=== PATIENT | male | born 1960 | race Caucasian/White ===

== ENCOUNTER 2023-03-21 11:23 | Inpatient (IN) | payer OTHER ==
[~2023-03-21] VITALS: Ht 172.7 cm; Wt 84.3 kg
[~2023-03-21 11:23] MED LIST: CYCL-837 PO; DexAMETHasone SOD PHOS 10MG/1ML VIAL INJ ONE; GLYCOPYRROLATE 0.2 MG/ML 1ML VIAL ONE; LIDOCAINE 2% JELLY 11ml (GLYDO) ONE; LOSA50TA46 PO; MEPERIDINE HCL (50 MG/ML) 1 ML VIAL ONE; MIDAZOLAM HCL 2MG/2ML 2ml VIAL (1mg/ml) ONE; NAP500T PO; NEOSTIGMINE 1 MG/ML INJ (10mg/10ML VIAL) ONE; OMEP20TA PO; ONDANSETRON HCL 4 MG/2 ML VIAL ONE; PROPOFOL 10 MG/ML 20 ML IV ONE; ROCURONIUM 10MG/ML 10ML VIAL IV ONE; SODIUM CHLORIDE LOCK 40 ML ONE; SUCCINYLCHOLINE CHLORIDE 20 MG/ML 10ML VIAL IV ONE; TAMS0.4C36 PO; TRAM50TA2 PO; TRANEXAMIC ACID 20 ML ONE; ceFAZolin 1GM/50ML 100 ML IV ONE; fentaNYL CITRATE 100 MCG/2 ML VL ONE
[2023-03-21] MEDS: ceFAZolin 1GM/50ML 50 ML IV SCH ×2 (11:30→21:33)
[2023-03-21] MEDS ORDERED: ACETAMINOPHEN 325 MG TAB PO PRN (11:30)
[2023-03-21] MEDS ORDERED: NITROGLYCERIN 0.4 MG SL TAB SL PRN (11:30)
[2023-03-21] MEDS ORDERED: ONDANSETRON HCL 4 MG/2 ML VIAL IV PRN (11:30)
[2023-03-21] MEDS ORDERED: DexAMETHasone SOD PHOS 10MG/1ML VIAL INJ IV ONE (11:30)
[2023-03-21] MEDS ORDERED: MORPHINE SULFATE INJ 2 MG/ml SYRG IV PRN (11:30)
[2023-03-21 11:35] VITALS: PULSE 83; RESP 13; O2SAT 95
[2023-03-21] MEDS ORDERED: METOCLOPRAMIDE HCL 5MG/ml INJ 2ml VIAL IV PRN (11:45)
[2023-03-21] MEDS ORDERED: HYDROmorphone HCL 2 MG/ML VL/or syr IV PRN (11:45)
[2023-03-21] MEDS: HYDROmorphone HCL 2 MG/ML VL/or syr IV PRN ×4 (11:53→12:40)
[2023-03-21] MEDS: CYCLOBENZAPRINE HCL 10 MG TAB PO SCH ×3 (12:21→21:05)
[2023-03-21] MEDS: MORPHINE SULFATE INJ 2 MG/ml SYRG IV PRN ×3 (12:28→21:26)
[2023-03-21] MEDS: D5W/SOD CHLO 0.9% 1,000 ML IV SCH ×2 (12:35→21:34)
[2023-03-21] MEDS ORDERED: hydrALAZINE HCL 20 MG/ML VL IV ONE (13:15)
[2023-03-21] MEDS: HYDROcodone-ACET 10/325MG TAB PO PRN ×2 (14:15→23:08)
[2023-03-21] MEDS ORDERED: LABETALOL HCL 5 MG/ML 4ML SYRINGE IV ONE (14:15)
[2023-03-21 15:42] VITALS: PULSE 84; RESP 20; TEMP 36.9; O2SAT 95
[2023-03-21 16:00] VITALS: BP 184/96; PULSE 84; RESP 20; TEMP 97.4; O2SAT 95
[2023-03-21] MEDS ORDERED: LOSARTAN POTASSIUM 50 MG TAB PO ONE (17:00)
[2023-03-21 18:44] LABS: Chloride 105 mmol/L (98-107); Potassium 4.1 mmol/L (3.5-5.1); Sodium 138 mmol/L (136-145)
[2023-03-21 18:45] LABS: Anion Gap 6 (5-15); Calcium 8.7 mg/dL (8.5-10.1); Carbon Dioxide 27 mmol/L (20-30)
[2023-03-21 18:50] LABS: BUN/Creatinine Ratio 13.9 (10.0-20.0); Blood Urea Nitrogen 15 mg/dL (9-23); Glucose 153 mg/dL (74-106)
[2023-03-21 20:00] VITALS: PULSE 85; PULSE 96; RESP 18; O2SAT 95
[2023-03-21] MEDS: hydrALAZINE HCL 20 MG/ML VL IV PRN (21:02)
[2023-03-21] MEDS: LOSARTAN POTASSIUM 50 MG TAB PO SCH (21:04)
[2023-03-21] MEDS: DOCUSATE SOD 100 MG CAP PO SCH (21:34)
[2023-03-21 22:00] VITALS: BP 165/98; PULSE 85; RESP 18; TEMP 97.7; O2SAT 95
[2023-03-22] MEDS: hydrALAZINE HCL 20 MG/ML VL IV PRN (04:07)
[2023-03-22] MEDS: MORPHINE SULFATE INJ 2 MG/ml SYRG IV PRN (04:43)
[2023-03-22 05:00] VITALS: BP 182/98; PULSE 84; RESP 18; TEMP 98.4; O2SAT 97
[2023-03-22] MEDS: CYCLOBENZAPRINE HCL 10 MG TAB PO SCH ×2 (07:03→13:57)
[2023-03-22] MEDS: HYDROcodone-ACET 10/325MG TAB PO PRN (07:15)
[2023-03-22] MEDS: D5W/SOD CHLO 0.9% 1,000 ML IV SCH (07:49)
[2023-03-22 08:00] VITALS: BP 157/83; PULSE 90; PULSE 91; RESP 17; RESP 20; TEMP 98.3; O2SAT 96
[2023-03-22] MEDS: DOCUSATE SOD 100 MG CAP PO SCH (09:50)
[2023-03-22] MEDS: LOSARTAN POTASSIUM 50 MG TAB PO SCH (09:51)
[2023-03-22] MEDS ORDERED: diphenhdrAMINE HCL 50 MG/1 ML VL IV PRN (11:30)
[2023-03-22] MEDS ORDERED: traMADol HCL 50 MG TAB PO ONE (11:30)
[2023-03-22] MEDS ORDERED: DexAMETHasone SOD PHOS 10MG/1ML VIAL INJ IV ONE (11:45)
[2023-03-22 12:00] VITALS: BP 155/97; PULSE 90; RESP 20; TEMP 98; O2SAT 98
[2023-03-22 16:00] VITALS: BP 174/96; PULSE 96; RESP 19; TEMP 98.7; O2SAT 94
[2023-03-22 16:17] VITALS: BP 148/86
[2023-03-22] MEDS ORDERED: cloNIDine HCL 0.1 MG TAB PO ONE (17:00)
== END 2023-03-22 17:57 | disposition home or self-care (01) | DRG 473 ==
LOC: SUR 11:23 → TELE 11:24 → TELE-EAST 16:00
PROVIDERS: ADMIT Orthopaedic Surgery; ATTEND Orthopaedic Surgery
PROC: 0RG20A0 Fusion of 2 or more Cervical Vertebral Joints with Interbody Fusion Device, Anterior Approach, Anterior Column, Open Approach (ICD-10-PCS; 2023-03-21)
PROC: 00NW0ZZ Release Cervical Spinal Cord, Open Approach (ICD-10-PCS; 2023-03-21)
PROC: 01N10ZZ Release Cervical Nerve, Open Approach (ICD-10-PCS; 2023-03-21)
PROC: 0RB30ZZ Excision of Cervical Vertebral Disc, Open Approach (ICD-10-PCS; 2023-03-21)
PROC: 0RR30JZ Replacement of Cervical Vertebral Disc with Synthetic Substitute, Open Approach (ICD-10-PCS; principal; 2023-03-21 07:33)
DX: M48.02 Spinal stenosis, cervical region (principal); G89.4 Chronic pain syndrome; I10 Essential (primary) hypertension; K21.9 Gastro-esophageal reflux disease without esophagitis; M54.12 Radiculopathy, cervical region; N40.0 Benign prostatic hyperplasia without lower urinary tract symptoms
CPT/HCPCS: 36415; 72040; 76000; 80048; 86850; 86900; 86901; 97110; 97116; 97163; G0378; J0330; J0690; J1100; J2250; J2405; J2704; J3490; J7042

== ENCOUNTER 2023-07-17 06:55 | Day surgery (SDC) | payer OTHER ==
[2023-07-17] VITALS (10 sets, daily range): BP systolic 118–134; BP diastolic 71–77; PULSE 48–58; RESP 11–20; TEMP 97.6; O2SAT 94–98
[~2023-07-17] VITALS: Ht 172.7 cm; Wt 99.8 kg
[~2023-07-17 06:55] MED LIST changes: +AMLO1TAB23 PO; +CLON0.1T PO; -DexAMETHasone SOD PHOS 10MG/1ML VIAL INJ ONE; -GLYCOPYRROLATE 0.2 MG/ML 1ML VIAL ONE; +IRBE300T43 PO; -LIDOCAINE 2% JELLY 11ml (GLYDO) ONE; -LOSA50TA46 PO; -MEPERIDINE HCL (50 MG/ML) 1 ML VIAL ONE; +METO-289 PO; -MIDAZOLAM HCL 2MG/2ML 2ml VIAL (1mg/ml) ONE; -NAP500T PO; -NEOSTIGMINE 1 MG/ML INJ (10mg/10ML VIAL) ONE; -ONDANSETRON HCL 4 MG/2 ML VIAL ONE; -PROPOFOL 10 MG/ML 20 ML IV ONE; -ROCURONIUM 10MG/ML 10ML VIAL IV ONE; -SODIUM CHLORIDE LOCK 40 ML ONE; -SUCCINYLCHOLINE CHLORIDE 20 MG/ML 10ML VIAL IV ONE; -TRAM50TA2 PO; -TRANEXAMIC ACID 20 ML ONE; -ceFAZolin 1GM/50ML 100 ML IV ONE; -fentaNYL CITRATE 100 MCG/2 ML VL ONE
[2023-07-17] MEDS ORDERED: ANGIOMAX 250 MG VIAL IV ONE (07:41)
[2023-07-17] MEDS ORDERED: VERAPAMIL 2.5MG/ML INJ 2ML VIAL IV ONE (07:42)
[2023-07-17] MEDS ORDERED: LIDOCAINE 2%HCL (LOCAL ANESTH.) INJ 20ML MDV ONE (07:42)
[2023-07-17] MEDS ORDERED: IODIXANOL 320MG/ML 100ML BTL IV ONE ×2 (07:42→08:04)
[2023-07-17] MEDS ORDERED: SODIUM CHL 0.9% 0 ML ONE (07:42)
[2023-07-17] MEDS ORDERED: MIDAZOLAM HCL 2MG/2ML 2ml VIAL (1mg/ml) ONE (07:42)
[2023-07-17] MEDS ORDERED: fentaNYL CITRATE 100 MCG/2 ML VL ONE (07:42)
[2023-07-17] MEDS ORDERED: HEPARIN SODIUM (PORCINE) 5000 UNITS/ML 1ML VIAL ONE (07:42)
[2023-07-17] MEDS ORDERED: NITROGLYCERIN 50MG/250ML 250 ML IV ONE (07:48)
== END 2023-07-17 12:40 | disposition home or self-care (01) ==
LOC: CATH 06:55
PROVIDERS: ATTEND Internal Medicine
DX: R94.39 Abnormal result of other cardiovascular function study (principal); R07.9 Chest pain, unspecified; F41.1 Generalized anxiety disorder; I10 Essential (primary) hypertension; Z79.899 Other long term (current) drug therapy; Z98.890 Other specified postprocedural states
CPT/HCPCS: 93458; C1894; J1644; J2250; J3010; J7030; Q9967; 99152